=== PATIENT | male | born 1990 | race Caucasian/White ===

== ENCOUNTER 2017-05-05 16:00 | Emergency (ER) | payer BC ==
[2017-05-05 16:26] VITALS: BP 140/89; PULSE 114; RESP 20; TEMP 98.2; O2SAT 95
--- NOTE | 2017-05-05 16:59 | EDPHY ---
H & P Time Seen by Provider: 05/05/17 16:47 HPI/ROS: CHIEF COMPLAINT: Groin abscess HISTORY OF PRESENT ILLNESS: This patient is a 27 year old male with diabetes presenting with an abscess to his right groin area. Onset of tenderness and swelling on the right side of his groin 1 week ago, gradually increasing since then. The pain is moderate and increases with palpation. Associated with small amount of drainage. No fever, vomiting, or other associated symptoms. Tetanus is up-to-date. REVIEW OF SYSTEMS: Constitutional: No fever, no chills Eyes: No visual changes ENT: No sore throat Respiratory: No cough, no shortness of breath Cardiac: No chest pain Gastrointestinal: No nausea, no vomiting, no abdominal pain Genitourinary: No hematuria, no dysuria Musculoskeletal: No leg pain or swelling Skin: No rash Neurological: No headache, no weakness Psychiatric: No depression Past Medical/Surgical History: 1. Diabetes 2. Hyperlipidemia 3. Depression 4. Anxiety Social History: Recently moved from [place]. Smoking Status: Current some day smoker Physical Exam: General Appearance: Alert, pleasant Respiratory: Normal respiratory rate Cardiovascular: Regular rate and rhythm Gastrointestinal: Abdomen is soft and non-tender Genitourinary: 3cm abscess to right groin adjacent to the scrotum. Neurological: A&O, nonfocal, normal gait Skin: Warm and dry, no rash Extremities: Normal inspection Psychiatric: Anxious Constitutional: Initial Vital Signs Temperature (C) 36.8 C 05/05/17 16:23 Heart Rate 114 H 05/05/17 16:23 Respiratory Rate 20 05/05/17 16:23 Blood Pressure 140/89 H 05/05/17 16:23 O2 Sat (%) 95 05/05/17 16:23 O2 Delivery Mode Room Air Allergies/Adverse Reactions: No Known Allergies Allergy (Unverified 05/05/17 16:20) Home Medications: Medication Instructions Recorded Adderall Xr 20 mg Capsule 05/05/17 Effexor Xr 05/05/17 KLONOPIN 05/05/17 Levemir 05/05/17 Lipitor 40 mg (*) 05/05/17 Metformin 1000 mg 05/05/17 Sulfamethox/Tmp 800/160 mg 1 tab PO BID #14 tab 05/05/17 [Bactrim Ds] Wellbutrin Sr 05/05/17 novoLOG 05/05/17 Medical Decision Making Procedures: Procedure: Incision and Drainage abscess. The patient's 3cm abscess was located on the right groin area. Risks, benefits, alternatives discussed with the patient and consent obtained. The area was prepped and draped in sterile fashion. The patient received local anesthesia with 1% lidocaine with epinephrine. The abscess was incised with a #11 blade and purulent drainage was expressed. The wound was packed. The patient tolerated the procedure well. The procedure was performed by myself. ED Course/Re-evaluation: 27 year old male presents with 3cm abscess to right groin area adjacent to scrotum. Plan for I&D. Patient tolerated the procedure well. He will be discharged home in good condition with prescription for Bactrim. Follow up and return precautions discussed. Patient questions answered. He is comfortable with this plan. Departure - Departure Disposition: Home, Routine, Self-Care Clinical Impression: Abscess Condition: Good Instructions: Abscess (ED) Additional Instructions: 1. Take your Bactrim as prescribed. It is important that you finish your entire course of antibiotics. 2. You may remove the packing in two days, or follow up at the emergency department or with a primary care provider for packing removal. We have referred you to our primary care provider drilling field professional. 3. Return if you develop increasing pain, fever, or any other worsening of condition. Referrals: ARI DELVALLE [Other] - As per Instructions Gerard Barbosa MD [Medical Doctor] - As per Instructions (Follow-up in 2 days.) Prescriptions: Sulfamethox/Tmp 800/160 mg [Bactrim Ds] 1 tab PO BID #14 tab Report Scribed for: Taya Wallace Report Scribed by: Ela Sims Date of Report: 05/05/17 Time of Report: 17:12 Physician Review and Approval Statement: 05/05/17 17:12 Portions of this note were transcribed by a medical assistant per diem. I personally performed a history, physical exam, medical decision making, and confirmed accuracy of information the transcribed note.
== END 2017-05-05 17:22 | disposition home or self-care (01) ==
PROC: 0Y970ZZ Drainage of Right Femoral Region, Open Approach (ICD-10-PCS; principal; 2017-05-05)
DX: L02.214 Cutaneous abscess of groin (principal); E11.9 Type 2 diabetes mellitus without complications; F17.200 Nicotine dependence, unspecified, uncomplicated; Z79.84 Long term (current) use of oral hypoglycemic drugs

== ENCOUNTER 2017-05-07 09:59 | Emergency (ER) | payer BC ==
[2017-05-07 10:14] VITALS: BP 146/90; PULSE 95; RESP 16; TEMP 97.9; O2SAT 97
--- NOTE | 2017-05-07 10:35 | EDPHY ---
H & P Stated Complaint: here for wound recheck and packing removal of abcess HPI/ROS: CHIEF COMPLAINT: Right groin abscess recheck HISTORY OF PRESENT ILLNESS: Patient presents for recheck of a right groin abscess that was incised and drained 2 days ago. There is packing in place. He has had some drainage that is purulent. This is minimal amount. No erythema. His pain is significantly improved in the area. There is no testicular pain. No pain with urination. No fever or chills. He is diabetic on insulin and his blood sugars have been 180 to low 200s. He has had no fever or chills. He has no associated complaints or modifying factors otherwise. REVIEW OF SYSTEMS: Ten systems reviewed and are negative unless otherwise noted in the HPI PAST MEDICAL HISTORY: Insulin-dependent diabetes SOCIAL HISTORY: Nonsmoker FAMILY HISTORY: Noncontributory EXAMINATION General Appearance: Alert, no distress Head: normocephalic, atraumatic Gastrointestinal: Abdomen is soft and nontender Skin: Warm and dry, no rash. Right groin abscess that is status post incision and drainage with iodoform packing in place. There is no fluctuance. No surrounding erythema or edema. No induration. Minimal tenderness directly at the site. : Normal examination of the right hemiscrotum and penis. No tenderness of the right testicle Extremities: Nontender, no pedal edema Psychiatric: Mood and affect normal DIFFERENTIAL DIAGNOSES: Including but not limited to groin abscess, complicated abscess MDM: 10:30 a.m. Right groin abscess. This was packed 2 days ago. The wound is very well- appearing. There is no fluctuance. No drainage. No erythema. No testicular pain or abnormality on examination. Packing will be removed. He will be discharged home with daily wound care instructions. I instructed him to contact his concrete engineering technician to discuss changing his sliding scale insulin as his blood sugars have been up above 180. He said that he will do this. He is to return to ER for any worsening symptoms. I would like his wound to be rechecked again in 2-3 days. He is comfortable this plan and discharged home stable condition. SUPERVISION: This patient was independently evaluated without direct examination by the attending physician. Case was discussed with attending physician. Source: Patient, Old records Exam Limitations: No limitations - Personal History Current Tetanus/Diphtheria Vaccine: Yes Current Tetanus Diphtheria and Acellular Pertussis (TDAP): Yes - Medical/Surgical History Hx Asthma: No Hx Chronic Respiratory Disease: No Hx Diabetes: Yes Hx Cardiac Disease: Yes Hx Renal Disease: No Hx Cirrhosis: No Hx Alcoholism: No Hx HIV/AIDS: No Hx Splenectomy or Spleen Trauma: No Other PMH: DM I, HTN, HLD, depression, anxiety, panic attacks. - Social History Smoking Status: Current some day smoker Constitutional: Initial Vital Signs Temperature (C) 97.9 F 05/07/17 10:12 Heart Rate 95 05/07/17 10:12 Respiratory Rate 16 05/07/17 10:12 Blood Pressure 146/90 H 05/07/17 10:12 O2 Sat (%) 97 05/07/17 10:12 O2 Delivery Mode Room Air Allergies/Adverse Reactions: No Known Allergies Allergy (Unverified 05/05/17 16:20) Home Medications: Medication Instructions Recorded Adderall Xr 20 mg Capsule 05/05/17 Effexor Xr 05/05/17 KLONOPIN 05/05/17 Levemir 05/05/17 Lipitor 40 mg (*) 05/05/17 Metformin 1000 mg 05/05/17 Sulfamethox/Tmp 800/160 mg 1 tab PO BID #14 tab 05/05/17 [Bactrim Ds] Wellbutrin Sr 05/05/17 novoLOG 05/05/17 Departure - Departure Disposition: Home, Routine, Self-Care Clinical Impression: Abscess of groin, right, Insulin dependent diabetes mellitus Condition: Good Instructions: Abscess (ED), Abscess Follow-up (ED) Additional Instructions: 1. Daily wound care as discussed 2. Contact her concrete engineering technician to discuss all treating her sliding scale insulin 3. Return to the ER for any return of symptoms, redness, testicular pain 4. Wound recheck in 2-3 days Referrals: NONE *PRIMARY CARE P,. [Primary Care Provider] - As per Instructions Remedios Espino MD [[facility] Primary Care Provider] - As per Instructions
== END 2017-05-07 10:45 | disposition home or self-care (01) ==
DX: L02.214 Cutaneous abscess of groin (principal); E11.9 Type 2 diabetes mellitus without complications; I10 Essential (primary) hypertension; F17.200 Nicotine dependence, unspecified, uncomplicated

== ENCOUNTER 2017-05-17 16:21 | Emergency (ER) | payer BC ==
[2017-05-17] MEDS ORDERED: LORazepam 1 MG TAB PO ONE (17:16)
--- NOTE | 2017-05-17 17:59 | EDPHY ---
H & P Time Seen by Provider: 05/17/17 17:21 HPI/ROS: CHIEF COMPLAINT: Fever chills lower back pain HISTORY OF PRESENT ILLNESS: This is a 27-year-old male presenting to the emergency department complaining of fever chills onset at 0230, patient states he took some Advil this morning which did help some, but as the days progressed lower back pain with some burning urination. Denies any nausea vomiting. Reports he 2 weeks ago is seen for abscess to right groin is resolving still on antibiotics no complications. REVIEW OF SYSTEMS: Constitutional: Fever. Chills Eyes: No discharge. ENT: No sore throat. Cardiovascular: No chest pain, no palpitations. Respiratory: No cough, no shortness of breath. Gastrointestinal: No abdominal pain, no vomiting. Genitourinary: Burning with urination Musculoskeletal: Lower back pain. Skin: No rashes. Neurological: No headache. Smoking Status: Current some day smoker Physical Exam: General Appearance: Alert, no distress. Afebrile. Non ill or toxic appearing Eyes: Pupils equal and round no pallor or injection. ENT, Mouth: Mucous membranes moist. Respiratory: There are no retractions, lungs are clear to auscultation. Cardiovascular: Regular rate and rhythm. Gastrointestinal: Abdomen is soft and nontender, no masses, bowel sounds normal. Neurological: No focal deficits. Answering questions appropriately Skin: Warm and dry, no rashes. Musculoskeletal: Neck is supple nontender. No CVA tenderness on palpation Extremities: symmetrical, full range of motion. Psychiatric: Patient is oriented X 3, answering questions appropriately Constitutional: Initial Vital Signs Temperature (C) 37.0 C 05/17/17 16:50 Heart Rate 110 H 05/17/17 16:50 Respiratory Rate 18 05/17/17 16:50 Blood Pressure 136/78 H 05/17/17 16:50 O2 Sat (%) 96 05/17/17 16:50 O2 Delivery Mode Room Air Allergies/Adverse Reactions: No Known Allergies Allergy (Unverified 05/17/17 16:48) Home Medications: Medication Instructions Recorded Adderall Xr 20 mg Capsule 05/05/17 Effexor Xr 05/05/17 KLONOPIN 05/05/17 Levemir 05/05/17 Lipitor 40 mg (*) 05/05/17 Metformin 1000 mg 05/05/17 Sulfamethox/Tmp 800/160 mg 1 tab PO BID #14 tab 05/05/17 [Bactrim Ds] Wellbutrin Sr 05/05/17 novoLOG 05/05/17 Medical Decision Making ED Course/Re-evaluation: Discussed ED plan of care: UA, CBC, BMP 1830: Discussed all lab results with patient. Not in any distress stable 1845: Discharge home---> stable, discussed all discharge instructions with patient. Differential Diagnosis: Other differential diagnosis considered but not limited to UTI, renal colic, kidney stones, DKA - Data Points Laboratory Results: Laboratory Results 05/17/17 18:06 05/17/17 18:06 05/17/17 05/17/17 18:06 18:06 WBC 7.37 10^3/uL 10^3/uL (3.80-9.50) RBC 5.08 10^6/uL 10^6/uL (4.40-6.38) Hgb 14.4 g/dL g/dL (13.7-17.5) Hct 42.9 % % (40.0-51.0) MCV 84.4 fL fL (81.5-99.8) MCH 28.3 pg pg (27.9-34.1) MCHC 33.6 g/dL g/dL (32.4-36.7) RDW 12.8 % % (11.5-15.2) Plt Count 207 10^3/uL 10^3/uL (150-400) MPV 10.3 fL fL (8.7-11.7) Neut % (Auto) 81.4 % H % (39.3-74.2) Lymph % (Auto) 7.6 % L % (15.0-45.0) Yancey % (Auto) 6.1 % % (4.5-13.0) Eos % (Auto) 3.7 % % (0.6-7.6) Baso % (Auto) 0.5 % % (0.3-1.7) Nucleat RBC Rel Count 0.0 % % (0.0-0.2) Absolute Neuts (auto) 6.00 10^3/uL 10^3/uL (1.70-6.50) Absolute Lymphs (auto) 0.56 10^3/uL L 10^3/uL (1.00-3.00) Absolute Monos (auto) 0.45 10^3/uL 10^3/uL (0.30-0.80) Absolute Eos (auto) 0.27 10^3/uL 10^3/uL (0.03-0.40) Absolute Basos (auto) 0.04 10^3/uL 10^3/uL (0.02-0.10) Absolute Nucleated RBC 0.00 10^3/uL 10^3/uL (0-0.01) Immature Gran % 0.7 % % (0.0-1.1) Immature Gran # 0.05 10^3/uL 10^3/uL (0.00-0.10) Sodium 135 mEq/L mEq/L (134-144) Potassium 4.2 mEq/L mEq/L (3.5-5.2) Chloride 99 mEq/L mEq/L (97-110) Carbon Dioxide 21 mEq/l L mEq/l (22-31) Anion Gap 15 mEq/L mEq/L (8-16) BUN 12 mg/dL mg/dL (7-23) Creatinine 0.9 mg/dL mg/dL (0.7-1.3) Estimated GFR > 60 Glucose 189 mg/dL H mg/dL (70-100) Calcium 10.0 mg/dL mg/dL (8.5-10.4) Medications Given: Discontinued Medications Lorazepam (Ativan) 1 mg PO EDNOW ONE Stop: 05/17/17 17:17 Last Admin: 05/17/17 17:20 Dose: 1 mg Departure - Departure Disposition: Home, Routine, Self-Care Clinical Impression: Back pain Qualifiers: Back pain location: low back pain Chronicity: acute Back pain laterality: bilateral Sciatica presence: without sciatica Qualified Code(s): M54.5 - Low back pain Condition: Good Instructions: Acute Low Back Pain (ED) Additional Instructions: 1. Follow up with your primary care provider tomorrow or next week 2. Ibuprofen 600 mg stated mg every 6-8 hours as needed 3. Continue monitoring your blood sugar 4. If at any point time symptoms worsen, such as: Nausea vomiting fevers greater than 101 on resolving with Tylenol ibuprofen shortness of breath chest pain return to the ER Referrals: Colette Cohn MD [Primary Care Provider] - As per Instructions
[2017-05-17 18:16] LABS: % IMMATURE GRANULYOCYTES 0.7 % (0.0-1.1); ABSOLUTE IMMATURE GRANULOCYTES 0.05 10^3/uL (0.00-0.10); ADD DIFF? NO; ADD MORPH? NO; ADD SCAN? NO; ATYPICAL LYMPHOCYTE FLAG 10 (0-99); FRAGMENT RBC FLAG 0 (0-99); HEMATOCRIT 42.9 % (40.0-51.0); HEMOGLOBIN 14.4 g/dL (13.7-17.5); LEFT SHIFT FLG 10 (0-99); LIPEMIA HEMOLYSIS FLAG 80 (0-99); MEAN CELL HEMOGLOBIN 28.3 pg (27.9-34.1); MEAN CELL HEMOGLOBIN CONCENTR. 33.6 g/dL (32.4-36.7); MEAN CELL VOLUME 84.4 fL (81.5-99.8); MEAN PLATELET VOLUME 10.3 fL (8.7-11.7); PLATELET CLUMPS FLAG 10 (0-99); PLATELET COUNT 207 10^3/uL (150-400); RED BLOOD CELL COUNT 5.08 10^6/uL (4.40-6.38); RED CELL DISTRIBUTION WIDTH 12.8 % (11.5-15.2)
[2017-05-17 18:32] LABS: ANION GAP 15 mEq/L (8-16); CARBON DIOXIDE 21 mEq/l (22-31); CHLORIDE 99 mEq/L (97-110); CREATININE 0.9 mg/dL (0.7-1.3); GLOMERULAR FILTRATION RATE > 60; GLUCOSE 189 mg/dL (70-100); POTASSIUM 4.2 mEq/L (3.5-5.2); SODIUM 135 mEq/L (134-144)
[2017-05-17 19:04] VITALS: BP 139/78; PULSE 103; RESP 17; TEMP 100.8; O2SAT 98
== END 2017-05-17 19:03 | disposition home or self-care (01) ==
DX: M54.5 Low back pain (principal); F17.200 Nicotine dependence, unspecified, uncomplicated

== ENCOUNTER 2017-07-10 19:28 | Emergency (ER) | payer BC ==
--- NOTE | 2017-07-10 20:00 | EDPHY ---
H & P Stated Complaint: N/V x 24 hours Time Seen by Provider: 07/10/17 19:56 HPI/ROS: HPI: This is a 27-year-old male who presents with Chief Complaint:Nausea and vomiting Location: GI Quality: nausea and Vomiting Duration: 2 days Signs and Symptoms: No abdominal pain, no fever, no diarrhea, + nausea, + vomiting x4 times today, no blood in stool, no hematemesis, no abdominal bloody Timing: Sudden, intermittent Severity: Moderate Context: Patient is a type 1 diabetic on long-term insulin who complains of nausea and vomiting 4 times today. Denies hematemesis/abdominal pain. He reports that he has a cold for the past few days. Yesterday he started to experience intermittent nausea and vomiting started today. Denies abdominal pain. Denies recent antibiotic use. Denies concern for food poisoning. Reports his blood sugars have been running high. He is scheduled to receive his insulin pump in the next month or so. Modifying Factors: Has not tried any [id number] medications but has tried to sip liquids to prevent dehydration. Comment: ROS: Constitutional: No fever, no chills, no weight loss Eyes: No blurred vision Respiratory: No shortness of breath, no cough Cardiovascular: No chest pain Gastrointestinal: + nausea, + vomiting, no diarrhea Genitourinary: No dysuria Extremities: No myalgias Neurologic: No weakness, no numbness Skin: No rashes Hematologic: No bruising, no bleeding MEDICAL/SURGICAL/SOCIAL: PMHx: DM I, HTN, HLD, depression, anxiety, panic attacks PSHx: abscess drained, wisdom tooth extraction, hernia repair CONSTITUTIONAL: Overweight ill-appearing male, nontoxic, awake and alert, no obvious distress HEENT: Atraumatic and normocephalic, PERRL, EOMI. Tympanic membranes clear. Oropharynx clear, no exudate and moist pink mucosa. Airway patent. No lymphadenopathy. No meningismus. Cardiovascular: Normal S1/S2, regular rate, regular rhythm, without murmur rub or gallop. PULMONARY/CHEST: Symmetrical and nontender. Clear to auscultation bilaterally. Good air movement. No accessory muscle usage. ABDOMEN: Soft, nondistended, nontender, no rebound, no guarding, no peritoneal signs, no masses or organomegaly. No CVAT. EXTREMITIES: 2/2 pulses, no deformities, no clubbing, no cyanosis or edema. NEUROLOGICAL: no focal neuro deficits. GCS 15. SKIN: Warm and dry, no erythema. no rash. Good capillary refill. Source: Patient Exam Limitations: No limitations - Personal History Current Tetanus/Diphtheria Vaccine: Yes - Medical/Surgical History Hx Asthma: No Hx Chronic Respiratory Disease: No Hx Diabetes: Yes Hx Cardiac Disease: Yes Hx Renal Disease: No Hx Cirrhosis: No Hx Alcoholism: No Hx HIV/AIDS: No Hx Splenectomy or Spleen Trauma: No Other PMH: PMHx: DM I, HTN, HLD, depression, anxiety, panic attacks. PSHx: abcess drained, wisdom tooth extraction, hernia repair - Social History Smoking Status: Current some day smoker Constitutional: Initial Vital Signs Temperature (C) 36.5 C 07/10/17 19:30 Heart Rate 96 07/10/17 19:30 Respiratory Rate 16 07/10/17 19:30 Blood Pressure 165/96 H 07/10/17 19:30 O2 Sat (%) 95 07/10/17 19:30 O2 Delivery Mode Room Air O2 (L/minute) 2 Allergies/Adverse Reactions: No Known Allergies Allergy (Unverified 05/17/17 16:48) Home Medications: Medication Instructions Recorded Adderall Xr 20 mg Capsule 05/05/17 Effexor Xr 05/05/17 KLONOPIN 05/05/17 Levemir 05/05/17 Lipitor 40 mg (*) 05/05/17 Metformin 1000 mg 05/05/17 Sulfamethox/Tmp 800/160 mg 1 tab PO BID #14 tab 05/05/17 [Bactrim Ds] Wellbutrin Sr 05/05/17 novoLOG 05/05/17 Ondansetron Odt [Zofran Odt 4 mg 4 mg PO Q4 PRN #12 tab 07/10/17 (*)] Medical Decision Making ED Course/Re-evaluation: Labs, IV fluids, IV medication, urinalysis ordered Will evaluate for DKA. Suspect viral gastroenteritis. FSBS 237 upon arrival Mild leukocytosis noted, with mild abnormalities in anion gap and CO2. Serum glucose is in the 200s. Which is likely due to his viral infectious process. Given 2 L of fluid and IV Zofran with moderate relief 2100 Reassessed patient: no longer nauseous and reports that he feels 50% better. Discussed obtaining ultrasound or CT imaging with patient and he politely declines which I feel is reasonable at this time as is abdominal exam is benign and LFTs are normal. Magnesium level 1.2; given magnesium IV supplementation; etiology is due to GI losses While receiving IV magnesium, nursing notified me that patient began to feel anxious. IV Ativan 1 mg given UA shows ketones and glucose. Passed PO trial. Differential Diagnosis: Upper abdominal pain including but not limited to cholecystitis, gastritis, peptic ulcers disease, and pancreatitis. - Data Points Laboratory Results: Laboratory Results 07/10/17 20:30 07/10/17 20:30 07/10/17 07/10/17 07/10/17 21:15 20:30 20:30 WBC 13.06 10^3/uL H 10^3/uL (3.80-9.50) RBC 5.45 10^6/uL 10^6/uL (4.40-6.38) Hgb 15.4 g/dL g/dL (13.7-17.5) Hct 45.1 % % (40.0-51.0) MCV 82.8 fL fL (81.5-99.8) MCH 28.3 pg pg (27.9-34.1) MCHC 34.1 g/dL g/dL (32.4-36.7) RDW 13.3 % % (11.5-15.2) Plt Count 241 10^3/uL 10^3/uL (150-400) MPV 10.4 fL fL (8.7-11.7) Neut % (Auto) 86.8 % H % (39.3-74.2) Lymph % (Auto) 7.0 % L % (15.0-45.0) Shannon % (Auto) 5.2 % % (4.5-13.0) Eos % (Auto) 0.1 % L % (0.6-7.6) Baso % (Auto) 0.2 % L % (0.3-1.7) Nucleat RBC Rel Count 0.0 % % (0.0-0.2) Absolute Neuts (auto) 11.35 10^3/uL H 10^3/uL (1.70-6.50) Absolute Lymphs (auto) 0.91 10^3/uL L 10^3/uL (1.00-3.00) Absolute Monos (auto) 0.68 10^3/uL 10^3/uL (0.30-0.80) Absolute Eos (auto) 0.01 10^3/uL L 10^3/uL (0.03-0.40) Absolute Basos (auto) 0.02 10^3/uL 10^3/uL (0.02-0.10) Absolute Nucleated RBC 0.00 10^3/uL 10^3/uL (0-0.01) Immature Gran % 0.7 % % (0.0-1.1) Immature Gran # 0.09 10^3/uL 10^3/uL (0.00-0.10) Sodium 136 mEq/L mEq/L (134-144) Potassium 3.9 mEq/L mEq/L (3.5-5.2) Chloride 99 mEq/L mEq/L (97-110) Carbon Dioxide 19 mEq/l L mEq/l (22-31) Anion Gap 18 mEq/L H mEq/L (8-16) BUN 12 mg/dL mg/dL (7-23) Creatinine 0.6 mg/dL L mg/dL (0.7-1.3) Estimated GFR > 60 Glucose 255 mg/dL H mg/dL (70-100) Calcium 10.0 mg/dL mg/dL (8.5-10.4) Phosphorus 3.9 mg/dL mg/dL (2.5-4.5) Magnesium 1.2 mg/dL L mg/dL (1.6-2.3) Total Bilirubin 0.8 mg/dL mg/dL (0.1-1.4) Conjugated Bilirubin 0.3 mg/dL mg/dL (0.0-0.5) Unconjugated Bilirubin 0.5 mg/dL mg/dL (0.0-1.1) AST 27 IU/L IU/L (17-59) ALT 52 IU/L IU/L (21-72) Alkaline Phosphatase 94 IU/L IU/L (38-126) Total Protein 7.6 g/dL g/dL (6.3-8.2) Albumin 4.8 g/dL g/dL (3.5-5.0) Lipase 48 IU/L IU/L (23-300) Beta-Hydroxybutyrate 1.15 mmol/L H mmol/L (0.02-0.27) Urine Color YELLOW Urine Appearance CLEAR Urine pH 6.0 (5.0-7.5) Ur Specific [place] 1.017 (1.002-1.030) Urine Protein NEGATIVE (NEGATIVE) Urine Ketones 2+ H (NEGATIVE) Urine Blood NEGATIVE (NEGATIVE) Urine Nitrate NEGATIVE (NEGATIVE) Urine Bilirubin NEGATIVE (NEGATIVE) Urine Urobilinogen NEGATIVE EU EU (0.2-1.0) Ur Leukocyte Esterase NEGATIVE (NEGATIVE) Urine RBC 1-3 /hpf /hpf (0-3) Urine WBC 1-3 /hpf /hpf (0-3) Ur Epithelial Cells TRACE /lpf /lpf (NONE-1+) Urine Glucose 3+ H (NEGATIVE) Medications Given: Discontinued Medications Sodium Chloride (Ns) 1,000 mls @ 0 mls/hr IV EDNOW ONE; Wide Open PRN Reason: Protocol Stop: 07/10/17 20:02 Last Admin: 07/10/17 20:34 Dose: 1,000 mls Sodium Chloride (Ns) 1,000 mls @ 0 mls/hr IV EDNOW ONE; Wide Open PRN Reason: Protocol Stop: 07/10/17 20:02 Last Admin: 07/10/17 21:32 Dose: 1,000 mls Magnesium Sulfate/Dextrose (Magnesium Sulf 1 Gm (Premix)) 100 mls @ 100 mls/hr IV EDNOW ONE Stop: 07/10/17 21:55 Last Admin: 07/10/17 21:11 Dose: 100 mls Lorazepam (Ativan Injection) 1 mg IVP EDNOW ONE Stop: 07/10/17 21:28 Last Admin: 07/10/17 21:30 Dose: 1 mg Ondansetron HCl (Zofran) 4 mg IVP EDNOW ONE Stop: 07/10/17 20:02 Last Admin: 07/10/17 20:34 Dose: 4 mg Ondansetron HCl (Zofran Odt 4 Mg Prepack#2) 1 btl TAKEHOME EDNOW ONE Stop: 07/10/17 22:07 Last Admin: 07/10/17 22:08 Dose: 1 btl Promethazine HCl (Phenergan) 25 mg IVP EDNOW ONE Stop: 07/10/17 22:04 Last Admin: 07/10/17 22:08 Dose: 25 mg Departure - Departure Disposition: Home, Routine, Self-Care Clinical Impression: Hyperglycemia due to type 1 diabetes mellitus, Gastroenteritis Condition: Good Instructions: Gastroenteritis (ED) Additional Instructions: Please have repeat labs drawn in 3-5 days to document normalization of your magnesium level. Rest as much as possible and drink plenty of fluids. Take insulin as prescribed. Referrals: Colette Cohn MD [Primary Care Provider] - As per Instructions Prescriptions: Ondansetron Odt [Zofran Odt 4 mg (*)] 4 mg PO Q4 PRN #12 tab PRN Reason: Nausea/Vomiting, Use 1st
[2017-07-10] MEDS ORDERED: NS 1,000 ML IV ONE ×2 (20:01)
[2017-07-10] MEDS ORDERED: ONDANSETRON 4 MG/2 ML VIAL IVP ONE (20:01)
[2017-07-10 20:39] LABS: % IMMATURE GRANULYOCYTES 0.7 % (0.0-1.1); ABSOLUTE IMMATURE GRANULOCYTES 0.09 10^3/uL (0.00-0.10); ADD DIFF? NO; ADD MORPH? NO; ADD SCAN? NO; ATYPICAL LYMPHOCYTE FLAG 0 (0-99); FRAGMENT RBC FLAG 0 (0-99); HEMATOCRIT 45.1 % (40.0-51.0); HEMOGLOBIN 15.4 g/dL (13.7-17.5); LEFT SHIFT FLG 10 (0-99); LIPEMIA HEMOLYSIS FLAG 90 (0-99); MEAN CELL HEMOGLOBIN 28.3 pg (27.9-34.1); MEAN CELL HEMOGLOBIN CONCENTR. 34.1 g/dL (32.4-36.7); MEAN CELL VOLUME 82.8 fL (81.5-99.8); MEAN PLATELET VOLUME 10.4 fL (8.7-11.7); PLATELET CLUMPS FLAG 0 (0-99); PLATELET COUNT 241 10^3/uL (150-400); RED BLOOD CELL COUNT 5.45 10^6/uL (4.40-6.38); RED CELL DISTRIBUTION WIDTH 13.3 % (11.5-15.2)
[2017-07-10 20:52] LABS: ALANINE AMINOTRANSFERASE 52 IU/L (21-72); ALBUMIN 4.8 g/dL (3.5-5.0); ALKALINE PHOSPHATASE 94 IU/L (38-126); ANION GAP 18 mEq/L (8-16); ASPARTATE AMINOTRANSFERASE 27 IU/L (17-59); BILIRUBIN,TOTAL 0.8 mg/dL (0.1-1.4); BILIRUBIN-CONJUGATED 0.3 mg/dL (0.0-0.5); BILIRUBIN-UNCONJUGATED 0.5 mg/dL (0.0-1.1); CARBON DIOXIDE 19 mEq/l (22-31); CHLORIDE 99 mEq/L (97-110); CREATININE 0.6 mg/dL (0.7-1.3); GLOMERULAR FILTRATION RATE > 60; GLUCOSE 255 mg/dL (70-100); MAGNESIUM 1.2 mg/dL (1.6-2.3); POTASSIUM 3.9 mEq/L (3.5-5.2); SODIUM 136 mEq/L (134-144); TOTAL PROTEIN 7.6 g/dL (6.3-8.2)
[2017-07-10] MEDS ORDERED: MAGNESIUM SULF 1 GM/DEXTROSE 100 ML IV ONE (20:56)
[2017-07-10 21:14] VITALS: TEMP 97.9
[2017-07-10] MEDS ORDERED: LORazepam 2 MG/ML INJ IVP ONE (21:27)
[2017-07-10 21:32] LABS: COLOR YELLOW; LEUKOCYTE ESTERASE,URINE NEGATIVE (NEGATIVE); NITRITE,URINE NEGATIVE (NEGATIVE)
[2017-07-10 21:33] LABS: B-HYDROXYBUTYRATE 1.15 mmol/L (0.02-0.27)
[2017-07-10] MEDS ORDERED: PROMETHAZINE HCL 25 MG/ML INJ IVP ONE (22:03)
[2017-07-10] MEDS ORDERED: ONDANSETRON 4MG PREPACK#2 BTL TAKEHOME ONE (22:06)
[2017-07-10 22:50] VITALS: BP 152/98; PULSE 100; RESP 18; O2SAT 95
== END 2017-07-10 22:43 | disposition home or self-care (01) ==
DX: K52.9 Noninfective gastroenteritis and colitis, unspecified (principal); E10.65 Type 1 diabetes mellitus with hyperglycemia; I10 Essential (primary) hypertension; F17.200 Nicotine dependence, unspecified, uncomplicated; E86.9 Volume depletion, unspecified; Z79.4 Long term (current) use of insulin; Z79.84 Long term (current) use of oral hypoglycemic drugs
CPT/HCPCS: 96365; J2060; J2405; J2550; J3475

== ENCOUNTER 2017-09-02 09:37 | Emergency (ER) | payer BC ==
[2017-09-02] MEDS ORDERED: NS 1,000 ML IV ONE ×2 (10:42→11:28)
[2017-09-02] MEDS ORDERED: ONDANSETRON 4 MG/2 ML VIAL IVP ONE (10:44)
[2017-09-02 10:48] LABS: % IMMATURE GRANULYOCYTES 0.6 % (0.0-1.1); ABSOLUTE IMMATURE GRANULOCYTES 0.06 10^3/uL (0.00-0.10); ADD DIFF? NO; ADD MORPH? NO; ADD SCAN? NO; ATYPICAL LYMPHOCYTE FLAG 0 (0-99); FRAGMENT RBC FLAG 0 (0-99); HEMATOCRIT 43.7 % (40.0-51.0); HEMOGLOBIN 15.8 g/dL (13.7-17.5); LEFT SHIFT FLG 0 (0-99); LIPEMIA HEMOLYSIS FLAG 90 (0-99); MEAN CELL HEMOGLOBIN 29.2 pg (27.9-34.1); MEAN CELL HEMOGLOBIN CONCENTR. 36.2 g/dL (32.4-36.7); MEAN CELL VOLUME 80.8 fL (81.5-99.8); MEAN PLATELET VOLUME 10.2 fL (8.7-11.7); PLATELET CLUMPS FLAG 10 (0-99); PLATELET COUNT 280 10^3/uL (150-400); RED BLOOD CELL COUNT 5.41 10^6/uL (4.40-6.38); RED CELL DISTRIBUTION WIDTH 13.5 % (11.5-15.2)
[2017-09-02 10:57] LABS: ANION GAP 18 mEq/L (8-16); CALCIUM 9.9 mg/dL (8.5-10.4); CARBON DIOXIDE 17 mEq/l (22-31); CHLORIDE 106 mEq/L (97-110); CREATININE 0.7 mg/dL (0.7-1.3); GLOMERULAR FILTRATION RATE > 60; GLUCOSE 289 mg/dL (70-100); POTASSIUM 3.8 mEq/L (3.5-5.2); SODIUM 141 mEq/L (134-144)
[2017-09-02] MEDS ORDERED: LORazepam 2 MG/ML INJ IVP ONE ×2 (11:10→11:28)
--- NOTE | 2017-09-02 11:34 | EDPHY ---
H & P Time Seen by Provider: 09/02/17 10:36 HPI/ROS: CHIEF COMPLAINT: Anxiety HISTORY OF PRESENT ILLNESS: 27-year-old male presents to the emergency department feeling extremely anxious. The patient is a type 1 diabetic on insulin. He has not seen a primary care provider in quite some time. His last hemoglobin A1c was a few months ago and was over 9. He feels nauseous and has been vomiting. He states that he was in intensive outpatient program for depression and anxiety and "amongst other things "and then the program went out of business. This ended few months ago and since that time he is having a great deal of difficulty coping. He feels extremely anxious. He is not suicidal or homicidal. "I just want to feel better. "He does not abuse drugs or alcohol. REVIEW OF SYSTEMS: Constitutional: No fever, no chills. Eyes: No double or blurry vision. ENT: No sore throat. Respiratory: No cough, no shortness of breath. Cardiac: No chest pain. Gastrointestinal: Vomiting. Diffuse abdominal pain. No diarrhea. Genitourinary: No dysuria. Musculoskeletal: No neck or back pain. Skin: No rashes. Neurological: No headache. Past Medical/Surgical History: Insulin-dependent diabetic, anxiety, depression Social History: Single Smoking Status: Current every day smoker Physical Exam: General Appearance: Alert, obvious distress. Hyperventilating, appears extremely anxious. Eyes: Pupils equal and round. Extraocular motions are all intact. ENT: Mouth: Mucous membranes very dry. Respiratory: No wheezing, rhonchi, or rales, lungs are clear to auscultation. Cardiovascular: Regular rate and rhythm. Gastrointestinal: Abdomen is soft and nontender, no masses, no rebound or guarding, bowel sounds normal. Neurological: Alert and oriented x 3, cranial nerves II through XII grossly intact Skin: Warm and dry, no rashes. Musculoskeletal: Nontender to palpate along the cervical, thoracic or lumbar spine. Neck is supple. Extremities: Full range of motion and no peripheral edema. Psychiatric: Patient is oriented X 3, there is no agitation. Constitutional: Initial Vital Signs Temperature (C) 36.9 C 09/02/17 09:50 Heart Rate 118 H 09/02/17 09:50 Respiratory Rate 26 H 09/02/17 09:50 Blood Pressure 188/70 H 09/02/17 09:50 O2 Sat (%) 99 09/02/17 09:50 O2 Delivery Mode Room Air Allergies/Adverse Reactions: No Known Allergies Allergy (Unverified 05/17/17 16:48) Home Medications: Medication Instructions Recorded Insulin Pump Cartridge 09/02/17 LORazepam [Ativan] 1 mg PO Q6-8PRN PRN #10 tab 09/02/17 Medical Decision Making ED Course/Re-evaluation: Patient had IV established and was given 2 mg total of IV Ativan as well as IV normal saline. He was observed. His laboratory studies were within normal limits. CO2 was low likely from hyperventilation. The patient does not feel suicidal homicidal. Initially he wanted to speak with somebody for mental health. Upon discharge, however the patient would like to be discharged home. He is not feeling suicidal or homicidal. He was discharged home with information for [facility]. Differential Diagnosis: Including but not limited to anxiety, dehydration, electrolyte abnormality, depression, suicidal ideation - Data Points Laboratory Results: Laboratory Results 09/02/17 10:25 09/02/17 10:25 09/02/17 09/02/17 09/02/17 10:25 10:25 10:25 WBC 10.54 10^3/uL H 10^3/uL (3.80-9.50) RBC 5.41 10^6/uL 10^6/uL (4.40-6.38) Hgb 15.8 g/dL g/dL (13.7-17.5) POC Hgb Hct 43.7 % % (40.0-51.0) POC Hct MCV 80.8 fL L fL (81.5-99.8) MCH 29.2 pg pg (27.9-34.1) MCHC 36.2 g/dL g/dL (32.4-36.7) RDW 13.5 % % (11.5-15.2) Plt Count 280 10^3/uL 10^3/uL (150-400) MPV 10.2 fL fL (8.7-11.7) Neut % (Auto) 81.3 % H % (39.3-74.2) Lymph % (Auto) 11.3 % L % (15.0-45.0) [place] % (Auto) 4.8 % % (4.5-13.0) Eos % (Auto) 1.4 % % (0.6-7.6) Baso % (Auto) 0.6 % % (0.3-1.7) Nucleat RBC Rel Count 0.0 % % (0.0-0.2) Absolute Neuts (auto) 8.57 10^3/uL H 10^3/uL (1.70-6.50) Absolute Lymphs (auto) 1.19 10^3/uL 10^3/uL (1.00-3.00) Absolute Monos (auto) 0.51 10^3/uL 10^3/uL (0.30-0.80) Absolute Eos (auto) 0.15 10^3/uL 10^3/uL (0.03-0.40) Absolute Basos (auto) 0.06 10^3/uL 10^3/uL (0.02-0.10) Absolute Nucleated RBC 0.00 10^3/uL 10^3/uL (0-0.01) Immature Gran % 0.6 % % (0.0-1.1) Immature Gran # 0.06 10^3/uL 10^3/uL (0.00-0.10) VBG Lactic Acid 3.4 mmol/L H mmol/L (0.7-2.1) POC Sodium Sodium 141 mEq/L mEq/L (134-144) POC Potassium Potassium 3.8 mEq/L mEq/L (3.5-5.2) POC Chloride Chloride 106 mEq/L mEq/L (97-110) Carbon Dioxide 17 mEq/l L mEq/l (22-31) Anion Gap 18 mEq/L H mEq/L (8-16) POC BUN BUN 12 mg/dL mg/dL (7-23) Creatinine 0.7 mg/dL mg/dL (0.7-1.3) POC Creatinine Estimated GFR > 60 Glucose 289 mg/dL H mg/dL (70-100) POC Glucose Calcium 9.9 mg/dL mg/dL (8.5-10.4) 09/02/17 10:24 WBC RBC Hgb POC Hgb 16.0 gm/dL gm/dL (13.7-17.5) Hct POC Hct 47 % % (40-51) MCV MCH MCHC RDW Plt Count MPV Neut % (Auto) Lymph % (Auto) [place] % (Auto) Eos % (Auto) Baso % (Auto) Nucleat RBC Rel Count Absolute Neuts (auto) Absolute Lymphs (auto) Absolute Monos (auto) Absolute Eos (auto) Absolute Basos (auto) Absolute Nucleated RBC Immature Gran % Immature Gran # VBG Lactic Acid POC Sodium 139 mEq/L mEq/L (134-144) Sodium POC Potassium 3.5 mEq/L mEq/L (3.3-5.0) Potassium POC Chloride 106 mEq/L mEq/L (97-110) Chloride Carbon Dioxide Anion Gap POC BUN 12 mg/dL mg/dL (7-23) BUN Creatinine POC Creatinine 0.7 mg/dL mg/dL (0.7-1.3) Estimated GFR Glucose POC Glucose 301 mg/dL H mg/dL (70-100) Calcium Medications Given: Discontinued Medications Sodium Chloride (Ns) 1,000 mls @ 0 mls/hr IV EDNOW ONE; Wide Open PRN Reason: Protocol Stop: 09/02/17 10:43 Last Admin: 09/02/17 10:47 Dose: 1,000 mls Sodium Chloride (Ns) 1,000 mls @ 0 mls/hr IV ONCE ONE PRN Reason: Wide Open Stop: 09/02/17 11:29 Last Admin: 09/02/17 11:37 Dose: 1,000 mls Lorazepam (Ativan Injection) 1 mg IVP EDNOW ONE Stop: 09/02/17 11:11 Last Admin: 09/02/17 11:13 Dose: 1 mg Lorazepam (Ativan Injection) 1 mg IVP EDNOW ONE Stop: 09/02/17 11:29 Last Admin: 09/02/17 11:36 Dose: 1 mg Ondansetron HCl (Zofran) 4 mg IVP EDNOW ONE Stop: 09/02/17 10:45 Last Admin: 09/02/17 10:47 Dose: 4 mg Point of Care Test Results: 09/02/17 10:24 POC Sodium 139 POC Potassium 3.5 POC Chloride 106 POC BUN 12 POC Creatinine 0.7 POC Glucose 301 H Departure - Departure Disposition: Home, Routine, Self-Care Clinical Impression: Anxiety, Dehydration Vomiting Qualifiers: Vomiting type: unspecified Vomiting Intractability: non-intractable Nausea presence: with nausea Qualified Code(s): R11.2 - Nausea with vomiting, unspecified Condition: Good Instructions: Generalized Anxiety Disorder (ED), Acute Nausea and Vomiting (ED) Additional Instructions: Ativan as needed for anxiety. Return to the emergency department if you developed pain in her chest, difficulty breathing, or if you feel worse in any way. Referrals: [facility],. [Clinic] - As per Instructions Prescriptions: LORazepam [Ativan] 1 mg PO Q6-8PRN PRN #10 tab PRN Reason: Anxiety
[2017-09-02 11:50] VITALS: TEMP 97.5
[2017-09-02 14:00] VITALS: BP 145/96; PULSE 87; RESP 18; O2SAT 95
== END 2017-09-02 13:48 | disposition home or self-care (01) ==
DX: F41.9 Anxiety disorder, unspecified (principal); E86.0 Dehydration; E86.9 Volume depletion, unspecified; F17.200 Nicotine dependence, unspecified, uncomplicated; E10.9 Type 1 diabetes mellitus without complications
CPT/HCPCS: 82947-QW; 96374; J2060; J2405

== ENCOUNTER 2018-03-03 09:46 | Emergency (ER) | payer BC ==
[2018-03-03] MEDS ORDERED: LORazepam 1 MG TAB PO ONE (10:07)
[2018-03-03] MEDS ORDERED: ONDANSETRON DISINTEGRATING 4 MG TAB PO ONE (10:07)
[2018-03-03] MEDS ORDERED: LIDOCAINE 2% VISCOUS 15 ML UDCUP PO ONE (10:08)
[2018-03-03] MEDS ORDERED: MAG HYDROX/AL HYDROX/SIMETH 30 ML UDCUP PO ONE (10:08)
[2018-03-03] MEDS ORDERED: HYOSCYAMINE SULFATE 0.125 MG TAB PO ONE (10:08)
--- NOTE | 2018-03-03 10:21 | EDPHY ---
H & P Time Seen by Provider: 03/03/18 09:53 HPI/ROS: CHIEF COMPLAINT: I am having a panic attack HISTORY OF PRESENT ILLNESS: 28-year-old man has insulin-dependent diabetes and what he tells me is a history of reflux and possible ulcer. He started getting epigastric mild abdominal pain last night associated with belching and burping. Today he had an episode of vomiting at home and started getting a panic attack with hyperventilation and feeling"out of it."He took a 0.5 mg Klonopin and presents to the ED for evaluation. His glucose was 266 at 8:00 a.m.. Patient says he has a history of panic attacks. When asked what he thinks would help with his symptoms is requesting treatment for his panic attack as well as a refill of his omeprazole. Denies diarrhea or alcohol ingestion or hematemesis or coffee-ground emesis or melena. REVIEW OF SYSTEMS: Eye: no change in vision ENT: no sore throat Cardiac: no chest pain or syncope Pulmonary: no cough or SOB Abdomen: HPI Musculoskeletal: no back pain Skin: no rash Neuro: no headache Constitutional: no fever : no urinary symptoms A comprehensive 10 point review of systems is otherwise negative aside from elements mentioned in the history of present illness. PAST MEDICAL HISTORY: Includes diabetes, hypertension, depression and anxiety, panic attacks. Hernia repair. Social history: Tobacco smoker General Appearance: Alert and conversant, cooperative. Eyes: No scleral icterus. ENT, Mouth: Normal mucous membranes. No angioedema. Respiratory: Normal respiratory effort, breath sounds equal, lungs are clear to auscultation. No wheezing. Cardiovascular: Regular rate and rhythm. Gastrointestinal: Abdomen is soft and non tender. Negative Awad sign. Neurological: Alert, face symmetric, normal motor and sensory in extremities. Skin: Warm and dry, no rashes. Musculoskeletal: No peripheral edema. Psychiatric: Patient appears quite anxious. Emergency Department course/MDM: I think ketoacidosis is unlikely. He does not appear to have high likelihood for GI bleed or cholecystitis or hepatitis or pancreatitis or other acute medical or surgical emergent condition. More likely reflux and panic attack. GI cocktail, oral Ativan, Zofran ODT. 1110: Feels better, wants discharge which I think is reasonable. Prescription for Zofran and omeprazole at his request. Smoking Status: Current every day smoker Constitutional: Initial Vital Signs Temperature (C) 36.7 C 03/03/18 09:50 Heart Rate 82 03/03/18 09:50 Respiratory Rate 18 03/03/18 09:50 Blood Pressure 163/108 H 03/03/18 09:50 O2 Sat (%) 99 03/03/18 09:50 O2 Delivery Mode Room Air Allergies/Adverse Reactions: No Known Allergies Allergy (Verified 03/03/18 09:49) Home Medications: Medication Instructions Recorded Insulin Pump Cartridge 09/02/17 ADDERALL 15 MG TABLET 03/03/18 Cymbalta 03/03/18 Effexor Xr 03/03/18 Omeprazole 20 mg PO HS #14 tablet. 03/03/18 Ondansetron Odt [Zofran Odt] 4 mg PO Q4PRN #10 tab 03/03/18 Wellbutrin Sr 03/03/18 Medical Decision Making Differential Diagnosis: Differential considered including but not limited to pancreatitis, cholecystitis , GI bleed, hyperventilation, panic attack or anxiety, pulmonary embolism, pneumonia. - Data Points Medications Given: Discontinued Medications Al Hydroxide/Mg Hydroxide (Maalox Susp) 30 ml PO ONCE ONE Stop: 03/03/18 10:09 Last Admin: 03/03/18 10:13 Dose: 30 ml Hyoscyamine Sulfate (Levsin, Hyomax-Sl) 0.25 mg PO ONCE ONE Stop: 03/03/18 10:09 Last Admin: 03/03/18 10:12 Dose: 0.25 mg Lidocaine (Lidocaine 2% Viscous) 15 ml PO ONCE ONE Stop: 03/03/18 10:09 Last Admin: 03/03/18 10:13 Dose: 15 ml Lorazepam (Ativan) 1 mg PO EDNOW ONE Stop: 03/03/18 10:08 Last Admin: 03/03/18 10:12 Dose: 1 mg Ondansetron HCl (Zofran Odt) 4 mg PO EDNOW ONE Stop: 03/03/18 10:08 Last Admin: 03/03/18 10:12 Dose: 4 mg Departure - Departure Disposition: Home, Routine, Self-Care Clinical Impression: Panic attack GERD (gastroesophageal reflux disease) Qualifiers: Esophagitis presence: esophagitis presence not specified Qualified Code(s): K21.9 - Gastro-esophageal reflux disease without esophagitis Condition: Good Instructions: Omeprazole (By mouth), Panic Attack (ED) Referrals: Colette Cohn MD [Primary Care Provider] - As per Instructions Prescriptions: Omeprazole 20 mg PO HS #14 tablet. Ondansetron Odt [Zofran Odt] 4 mg PO Q4PRN #10 tab
[2018-03-03 11:12] VITALS: BP 144/100
== END 2018-03-03 11:12 | disposition home or self-care (01) ==
DX: K21.9 Gastro-esophageal reflux disease without esophagitis (principal); F41.0 Panic disorder [episodic paroxysmal anxiety]; I10 Essential (primary) hypertension; E11.9 Type 2 diabetes mellitus without complications; F17.200 Nicotine dependence, unspecified, uncomplicated; Z79.4 Long term (current) use of insulin

== ENCOUNTER 2018-03-05 06:26 | Emergency (ER) | payer BC ==
[2018-03-05] MEDS ORDERED: LORazepam 1 MG TAB ONE (06:45)
[2018-03-05] MEDS ORDERED: LORazepam 1 MG TAB PO ONE (06:46)
--- NOTE | 2018-03-05 07:21 | EDPHY ---
H & P Time Seen by Provider: 03/05/18 07:19 HPI/ROS: Chief complaint. Dehydrated HPI. Patient 28-year-old male who initially complains of dehydration. However now he tells me he thinks he has is having a panic attack. He was given lorazepam orally prior to my seeing the patient he feels much better. He tells me had vomiting 2 days ago but not since. He has had low energy. No fever. Slight cough. No abdominal pain vomiting or diarrhea in the last 2 days. He has an insulin pump that he says he is using and seems to be working okay. He was seen March 03 for panic attack. ROS Constitutional. Low energy Eyes. no problems with vision ENT. no sore throat, no nasal drainage Cardiovascular. no chest pain Respiratory. no shortness of breath, no cough Abdominal. no abdominal pain, no nausea/vomiting, no diarrhea . no problems urinating MS. no calf pain/swelling, no neck/back pain, no joint pain Skin. no rash Lymph. no swollen glands Neuro. no headache, no dizziness, no difficulty walking or with speech Past Medical/Surgical History: Diabetes with insulin pump, hypertension, depression, anxiety, panic attacks Social History: Single, daily smoker, no alcohol Smoking Status: Heavy smoker Physical Exam: General Appearance: Alert well-developed male mild distress vital signs are stable Eyes: Pupils equal and round no pallor or injection. ENT, Mouth: Mucous membranes are moist. Respiratory: There are no retractions, lungs are clear to auscultation. Cardiovascular: Regular rate and rhythm. Gastrointestinal: Abdomen is soft and nontender, no masses, bowel sounds normal. Neurological: Awake and alert, sensory and motor exams grossly normal. Skin: Warm and dry, no rashes. Musculoskeletal: Neck is supple nontender. Extremities symmetrical, full range of motion. Psychiatric: Patient is oriented X 3, there is no agitation. Constitutional: Initial Vital Signs Temperature (C) 36.3 C 03/05/18 06:28 Heart Rate 98 03/05/18 06:28 Respiratory Rate 18 03/05/18 06:28 Blood Pressure 163/96 H 03/05/18 06:28 O2 Sat (%) 96 03/05/18 06:28 O2 Delivery Mode Room Air Allergies/Adverse Reactions: No Known Allergies Allergy (Verified 03/05/18 06:30) Home Medications: Medication Instructions Recorded Insulin Pump Cartridge 09/02/17 ADDERALL 15 MG TABLET 03/03/18 Cymbalta 03/03/18 Effexor Xr 03/03/18 Omeprazole 20 mg PO HS #14 tablet. 03/03/18 Ondansetron Odt [Zofran Odt] 4 mg PO Q4PRN #10 tab 03/03/18 Wellbutrin Sr 03/03/18 Klonopin 03/05/18 Medical Decision Making Procedures: IV normal saline. Patient had already been given a lorazepam and he is feeling better. ED Course/Re-evaluation: Re-evaluation again at 8:20 a.m.. Patient is stable. He and I discussed laboratory evaluation and elevated blood sugar. I asked him again about insulin pump and he feels that it is working fine. He is up to the bathroom to urinate. Re-evaluation again at 9:00 a.m.. Patient and I discussed laboratory evaluation , treatment plan including criteria for return importance of follow-up and further evaluation. He expresses understanding and agreement Differential Diagnosis: I do not think the patient has DKA. No significant findings for dehydration. His symptoms are improved after taking lorazepam. I think that this is likely anxiety. It is unclear why the patient's blood sugar is elevated at 230 as the pump seems to be working. - Data Points Laboratory Results: Laboratory Results 03/05/18 07:40 03/05/18 07:40 03/05/18 03/05/18 07:40 07:40 WBC 10.63 10^3/uL H 10^3/uL (3.80-9.50) RBC 5.57 10^6/uL 10^6/uL (4.40-6.38) Hgb 16.0 g/dL g/dL (13.7-17.5) Hct 45.9 % % (40.0-51.0) MCV 82.4 fL fL (81.5-99.8) MCH 28.7 pg pg (27.9-34.1) MCHC 34.9 g/dL g/dL (32.4-36.7) RDW 13.4 % % (11.5-15.2) Plt Count 276 10^3/uL 10^3/uL (150-400) MPV 9.9 fL fL (8.7-11.7) Neut % (Auto) 73.1 % % (39.3-74.2) Lymph % (Auto) 16.9 % % (15.0-45.0) [place] % (Auto) 8.4 % % (4.5-13.0) Eos % (Auto) 0.5 % L % (0.6-7.6) Baso % (Auto) 0.5 % % (0.3-1.7) Nucleat RBC Rel Count 0.0 % % (0.0-0.2) Absolute Neuts (auto) 7.78 10^3/uL H 10^3/uL (1.70-6.50) Absolute Lymphs (auto) 1.80 10^3/uL 10^3/uL (1.00-3.00) Absolute Monos (auto) 0.89 10^3/uL H 10^3/uL (0.30-0.80) Absolute Eos (auto) 0.05 10^3/uL 10^3/uL (0.03-0.40) Absolute Basos (auto) 0.05 10^3/uL 10^3/uL (0.02-0.10) Absolute Nucleated RBC 0.00 10^3/uL 10^3/uL (0-0.01) Immature Gran % 0.6 % % (0.0-1.1) Immature Gran # 0.06 10^3/uL 10^3/uL (0.00-0.10) Sodium 137 mEq/L mEq/L (135-145) Potassium 4.2 mEq/L mEq/L (3.3-5.0) Chloride 99 mEq/L mEq/L (97-110) Carbon Dioxide 23 mEq/l mEq/l (22-31) Anion Gap 15 mEq/L mEq/L (8-16) BUN 14 mg/dL mg/dL (7-23) Creatinine 0.7 mg/dL mg/dL (0.7-1.3) Estimated GFR > 60 Glucose 232 mg/dL H mg/dL (70-100) Calcium 9.6 mg/dL mg/dL (8.5-10.4) Medications Given: Discontinued Medications Sodium Chloride (Ns) 1,000 mls @ 0 mls/hr IV EDNOW ONE; Wide Open PRN Reason: Protocol Stop: 03/05/18 07:26 Last Admin: 03/05/18 07:36 Dose: 1,000 mls Lorazepam (Ativan) 1 mg PO EDNOW ONE Stop: 03/05/18 06:47 Last Admin: 03/05/18 06:48 Dose: 1 mg Departure - Departure Disposition: Home, Routine, Self-Care Clinical Impression: Anxiety, Hyperglycemia due to type 1 diabetes mellitus Condition: Good Instructions: Diabetic Hyperglycemia (ED) Additional Instructions: Drink plenty of fluids and stay hydrated. Monitor your blood sugars and make sure your insulin pump is functioning. Return for worsening symptoms including abdominal pain, vomiting, diarrhea. Recheck in 2 days without fail Referrals: NONE *PRIMARY CARE P,. [Primary Care Provider] - As per Instructions Colette Cohn MD [[facility] Primary Care Provider] - 2-3 days, call for appt.
[2018-03-05] MEDS ORDERED: NS 1,000 ML IV ONE (07:25)
[2018-03-05 07:47] LABS: PLATELET COUNT 276 10^3/uL (150-400)
[2018-03-05 10:25] VITALS: BP 156/103
== END 2018-03-05 10:26 | disposition home or self-care (01) ==
DX: F41.9 Anxiety disorder, unspecified (principal); E10.65 Type 1 diabetes mellitus with hyperglycemia; E86.9 Volume depletion, unspecified; I10 Essential (primary) hypertension; F17.200 Nicotine dependence, unspecified, uncomplicated

== ENCOUNTER 2018-08-05 14:18 | Emergency (ER) | payer BC ==
[2018-08-05] MEDS ORDERED: NS 1,000 ML IV ONE ×2 (14:45→15:34)
[2018-08-05] MEDS ORDERED: ONDANSETRON 4 MG/2 ML VIAL IVP ONE (14:45)
[2018-08-05] MEDS ORDERED: LORazepam 2 MG/ML INJ IVP ONE (15:34)
--- NOTE | 2018-08-05 15:34 | EDPHY ---
H & P Stated Complaint: N/V today; BS running high Time Seen by Provider: 08/05/18 15:01 HPI/ROS: CHIEF COMPLAINT: Vomiting HISTORY OF PRESENT ILLNESS: 28-year-old male with IDDM presents with vomiting. Onset of nausea at 0500. Multiple episodes of vomiting and inability tolerate oral fluids. Associated with increased anxiety. Blood sugar 200-220 this morning. Has an insulin pump. No fever, diarrhea or abdominal pain. REVIEW OF SYSTEMS: complete 10 point ROS reviewed and is negative except for the noted elements in the HPI - Personal History Current Tetanus Diphtheria and Acellular Pertussis (TDAP): Yes Tetanus Vaccine Date: 2010 - Medical/Surgical History Hx Asthma: No Hx Chronic Respiratory Disease: No Hx Diabetes: Yes Hx Cardiac Disease: Yes Hx Renal Disease: No Hx Cirrhosis: No Hx Alcoholism: No Hx HIV/AIDS: No Hx Splenectomy or Spleen Trauma: No Other PMH: PMHx: DM I, HTN, HLD, depression, anxiety, panic attacks. PSHx: abcess drained, wisdom tooth extraction, hernia repair - Social History Smoking Status: Current every day smoker Alcohol Use: Sober - Physical Exam Exam: General Appearance: Alert, cooperative, fidgety Eyes: Pupils equal and round, no conjunctival pallor or injection ENT, Mouth: Mucous membranes moist Neck: Normal inspection Respiratory: Lungs are clear to auscultation Cardiovascular: Regular rate and rhythm Gastrointestinal: Abdomen is soft and nontender Neurological: A&O, nonfocal, normal gait Skin: Warm and dry, no rash Extremities: Normal inspection Psychiatric: Anxious Constitutional: Initial Vital Signs Temperature (C) 37 C 08/05/18 14:20 Heart Rate 88 08/05/18 14:20 Respiratory Rate 18 08/05/18 14:20 Blood Pressure 147/78 H 08/05/18 14:20 O2 Sat (%) 97 08/05/18 14:20 O2 Delivery Mode Room Air Allergies/Adverse Reactions: No Known Allergies Allergy (Verified 08/05/18 14:19) Home Medications: Medication Instructions Recorded Insulin Pump Cartridge 09/02/17 ADDERALL 15 MG TABLET 03/03/18 Cymbalta 03/03/18 Wellbutrin Sr 03/03/18 Klonopin 03/05/18 Medical Decision Making ED Course/Re-evaluation: This diabetic patient presents with vomiting. IV normal saline 2 L and Zofran 4 mg IV given. Ativan 0.5 mg IV given for anxiety. Glucose 213, not in DKA. HCO3 18 secondary to dehydration. 4:30 p.m.-feels better, nausea has resolved. Continues to feel slightly anxious , declines further Ativan. Tolerated po fluid trial. Abdomen remained soft and nontender. Discharge instructions given. Differential Diagnosis: Differential diagnosis includes though it is not limited to appendicitis, cholecystitis, diverticulitis, pyelonephritis, bowel perforation, small bowel obstruction. - Data Points Laboratory Results: Laboratory Results 08/05/18 16:14 08/05/18 15:20 08/05/18 08/05/18 08/05/18 16:14 15:20 15:20 WBC REJ REJ RBC TNP TNP Hgb TNP TNP POC Hgb Hct TNP TNP POC Hct MCV TNP TNP MCH TNP TNP MCHC TNP TNP RDW TNP TNP Plt Count TNP TNP MPV TNP TNP Neut % (Auto) TNP TNP Lymph % (Auto) TNP TNP [place] % (Auto) TNP TNP Eos % (Auto) TNP TNP Baso % (Auto) TNP TNP Nucleat RBC Rel Count TNP TNP Absolute Neuts (auto) TNP TNP Absolute Lymphs (auto) TNP TNP Absolute Monos (auto) TNP TNP Absolute Eos (auto) TNP TNP Absolute Basos (auto) TNP TNP Absolute Nucleated RBC TNP TNP Immature Gran % TNP TNP Immature Gran # TNP TNP POC Sodium Sodium 137 mEq/L mEq/L (135-145) POC Potassium Potassium 5.0 mEq/L mEq/L (3.3-5.0) POC Chloride Chloride 106 mEq/L mEq/L (97-110) Carbon Dioxide 18 mEq/l L mEq/l (22-31) Anion Gap 13 mEq/L mEq/L (6-14) POC BUN BUN 15 mg/dL mg/dL (7-23) Creatinine 0.8 mg/dL mg/dL (0.7-1.3) POC Creatinine Estimated GFR > 60 Glucose 213 mg/dL H mg/dL (70-100) POC Glucose Calcium 9.3 mg/dL mg/dL (8.5-10.4) Specimen Hemolysis 174 08/05/18 15:02 WBC RBC Hgb POC Hgb 17.3 gm/dL gm/dL (13.7-17.5) Hct POC Hct 51 % % (40-51) MCV MCH MCHC RDW Plt Count MPV Neut % (Auto) Lymph % (Auto) [place] % (Auto) Eos % (Auto) Baso % (Auto) Nucleat RBC Rel Count Absolute Neuts (auto) Absolute Lymphs (auto) Absolute Monos (auto) Absolute Eos (auto) Absolute Basos (auto) Absolute Nucleated RBC Immature Gran % Immature Gran # POC Sodium 141 mEq/L mEq/L (135-145) Sodium POC Potassium 4.0 mEq/L mEq/L (3.3-5.0) Potassium POC Chloride 104 mEq/L mEq/L (97-110) Chloride Carbon Dioxide Anion Gap POC BUN 15 mg/dL mg/dL (7-23) BUN Creatinine POC Creatinine 0.9 mg/dL mg/dL (0.7-1.3) Estimated GFR Glucose POC Glucose 232 mg/dL H mg/dL (70-100) Calcium Specimen Hemolysis Medications Given: Discontinued Medications Sodium Chloride (Ns) 1,000 mls @ 0 mls/hr IV ONCE ONE PRN Reason: Wide Open Stop: 08/05/18 14:46 Last Admin: 08/05/18 14:48 Dose: 1,000 mls Sodium Chloride (Ns) 1,000 mls @ 0 mls/hr IV ONCE ONE; Wide Open PRN Reason: Protocol Stop: 08/05/18 15:35 Last Admin: 08/05/18 15:43 Dose: 1,000 mls Lorazepam (Ativan Injection) 0.5 mg IVP EDNOW ONE Stop: 08/05/18 15:35 Last Admin: 08/05/18 15:43 Dose: 0.5 mg Ondansetron HCl (Zofran) 4 mg IVP EDNOW ONE Stop: 08/05/18 14:46 Last Admin: 08/05/18 14:48 Dose: 4 mg Point of Care Test Results: Chemistry 08/05/18 15:02 POC Sodium 141 mEq/L mEq/L (135-145) POC Potassium 4.0 mEq/L mEq/L (3.3-5.0) POC Chloride 104 mEq/L mEq/L (97-110) POC BUN 15 mg/dL mg/dL (7-23) POC Creatinine 0.9 mg/dL mg/dL (0.7-1.3) POC Glucose 232 mg/dL H mg/dL (70-100) ISTAT H&H 08/05/18 15:02 POC Hgb 17.3 gm/dL gm/dL (13.7-17.5) POC Hct 51 % % (40-51) Departure - Departure Disposition: Home, Routine, Self-Care Clinical Impression: Vomiting Qualifiers: Vomiting type: unspecified Vomiting Intractability: intractable Nausea presence : with nausea Qualified Code(s): R11.2 - Nausea with vomiting, unspecified Condition: Good Instructions: Acute Nausea and Vomiting (ED) Additional Instructions: 1. Clear liquids for 24 hours. 2. Advance diet as tolerated. I suggest the BRAT diet to start: bananas, rice, applesauce and toast. 3. Return for worsening symptoms, persistent vomiting, abdominal pain, any concerns. Referrals: Colette Cohn MD [Primary Care Provider] - As per Instructions
[2018-08-05 17:06] VITALS: BP 150/69
== END 2018-08-05 17:10 | disposition home or self-care (01) ==
DX: R11.2 Nausea with vomiting, unspecified (principal); E86.0 Dehydration; E10.9 Type 1 diabetes mellitus without complications; F17.200 Nicotine dependence, unspecified, uncomplicated; Z79.4 Long term (current) use of insulin
CPT/HCPCS: 82435-PO; 82565-PO; 82947-PO; 84132-PO; 84295-PO; 84520-PO; 85014-PO; 96374; J2060; J2405

== ENCOUNTER 2018-08-07 07:43 | Emergency (ER) | payer BC ==
[2018-08-07] MEDS ORDERED: ONDANSETRON 4 MG/2 ML VIAL IVP ONE (08:20)
[2018-08-07] MEDS ORDERED: NS 1,000 ML IV ONE (08:20)
[2018-08-07 08:27] LABS: PLATELET COUNT 282 10^3/uL (150-400)
[2018-08-07] MEDS ORDERED: HALOPERIDOL LACT 5 MG/ML INJ IVP ONE (08:27)
--- NOTE | 2018-08-07 08:30 | EDPHY ---
H & P Stated Complaint: N/V since last night Time Seen by Provider: 08/07/18 08:20 HPI/ROS: CHIEF COMPLAINT: Vomiting HISTORY OF PRESENT ILLNESS: 28-year-old male with diabetes presents with vomiting. Onset of vomiting this morning, unable the tolerate oral fluids since then. Associated with generalized abdominal pain. The pain is moderate and cramping. Seen by me in this emergency department 2 days ago for vomiting, relieved with Zofran and Ativan IV. No recurrent vomiting until this morning. No fever or diarrhea. History of multiple prior similar episodes, previously diagnosed with peptic ulcer disease. 9 episodes of vomiting in the past 12 months. He is a daily marijuana user. REVIEW OF SYSTEMS: complete 10 point ROS reviewed and is negative except for the noted elements in the HPI Source: Patient, Family - Personal History Tetanus Vaccine Date: 2010 - Medical/Surgical History Hx Asthma: No Hx Chronic Respiratory Disease: No Hx Diabetes: Yes Hx Cardiac Disease: Yes Hx Renal Disease: No Hx Cirrhosis: No Hx Alcoholism: No Hx HIV/AIDS: No Hx Splenectomy or Spleen Trauma: No Other PMH: PMHx: DM I, HTN, HLD, depression, anxiety, panic attacks. PSHx: abcess drained, wisdom tooth extraction, hernia repair - Social History Smoking Status: Current every day smoker Alcohol Use: Sober Drug Use: Marijuana - Physical Exam Exam: General Appearance: Alert, pleasant, diaphoretic, writhing Eyes: Pupils equal and round, no conjunctival pallor or injection ENT, Mouth: Mucous membranes moist Neck: Normal inspection Respiratory: Lungs are clear to auscultation Cardiovascular: Regular rate and rhythm Gastrointestinal: Abdomen is soft, diffuse tenderness Neurological: A&O, nonfocal exam Skin: Warm and dry Extremities: Nontender, no pedal edema Psychiatric: Mood and affect normal Constitutional: Initial Vital Signs Temperature (C) 37.0 C 08/07/18 07:46 Heart Rate 80 08/07/18 07:46 Respiratory Rate 26 H 08/07/18 07:46 Blood Pressure 137/103 H 08/07/18 07:46 O2 Sat (%) 100 08/07/18 07:46 O2 Delivery Mode Room Air Allergies/Adverse Reactions: No Known Allergies Allergy (Verified 08/05/18 14:19) Home Medications: Medication Instructions Recorded Insulin Pump Cartridge 09/02/17 ADDERALL 15 MG TABLET 03/03/18 Cymbalta 05/13/18 Wellbutrin Sr 03/03/18 Klonopin 03/05/18 Ondansetron Odt [Zofran Odt 4 mg 4 mg PO Q4 PRN #6 tab 08/07/18 (*)] Promethazine HCl [Phenergan Rectal] 25 mg ID Q6 PRN #10 suppr 08/07/18 Medical Decision Making ED Course/Re-evaluation: This patient presents with recurrent nausea and vomiting, most consistent with cyclic vomiting syndrome. IV normal saline 1 L, Zofran 4 mg IV and Haldol 2.5 mg IV given. Blood glucose 182 and venous blood gas c/w hyperventilation and no acidosis. 10:00 a.m.-feels much better, no nausea or abdominal pain. Abdomen is soft and nontender. Ready for discharge home. Will follow up with his psychiatrist and with GI. Warning signs discussed. Differential Diagnosis: Differential diagnosis includes though it is not limited to appendicitis, cholecystitis, diverticulitis, pyelonephritis, bowel perforation, small bowel obstruction. - Data Points Laboratory Results: Laboratory Results 08/07/18 08:00 08/07/18 08:00 08/07/18 08/07/18 08/07/18 08:40 08:00 08:00 WBC 10.54 10^3/uL H 10^3/uL (3.80-9.50) RBC 5.70 10^6/uL 10^6/uL (4.40-6.38) Hgb 16.5 g/dL g/dL (13.7-17.5) Hct 46.7 % % (40.0-51.0) MCV 81.9 fL fL (81.5-99.8) MCH 28.9 pg pg (27.9-34.1) MCHC 35.3 g/dL g/dL (32.4-36.7) RDW 12.8 % % (11.5-15.2) Plt Count 282 10^3/uL 10^3/uL (150-400) MPV 11.1 fL fL (8.7-11.7) Neut % (Auto) 80.5 % H % (39.3-74.2) Lymph % (Auto) 11.8 % L % (15.0-45.0) [place] % (Auto) 6.2 % % (4.5-13.0) Eos % (Auto) 0.8 % % (0.6-7.6) Baso % (Auto) 0.4 % % (0.3-1.7) Nucleat RBC Rel Count 0.0 % % (0.0-0.2) Absolute Neuts (auto) 8.50 10^3/uL H 10^3/uL (1.70-6.50) Absolute Lymphs (auto) 1.24 10^3/uL 10^3/uL (1.00-3.00) Absolute Monos (auto) 0.65 10^3/uL 10^3/uL (0.30-0.80) Absolute Eos (auto) 0.08 10^3/uL 10^3/uL (0.03-0.40) Absolute Basos (auto) 0.04 10^3/uL 10^3/uL (0.02-0.10) Absolute Nucleated RBC 0.00 10^3/uL 10^3/uL (0-0.01) Immature Gran % 0.3 % % (0.0-1.1) Immature Gran # 0.03 10^3/uL 10^3/uL (0.00-0.10) Puncture Site VENOUS Patient Temperature 37.0 DEGREES DEGREES VBG pH 7.47 H (7.31-7.42) VBG HCO3 19 mEQ/L L mEQ/L (22-26) VBG Total CO2 19 mEq/L L mEq/L (21-27) VBG O2 Saturation 79 % H % (65-75) VBG Base Excess -3.1 mEq/L L mEq/L (-2.5-2.5) Mixed VBG pCO2 26 mmHg L mmHg (40-44) Mixed VBG pO2 44 mmHG H mmHG (35-40) Sodium 140 mEq/L mEq/L (135-145) Potassium 4.0 mEq/L mEq/L (3.3-5.0) Chloride 103 mEq/L mEq/L (97-110) Carbon Dioxide 18 mEq/l L mEq/l (22-31) Anion Gap 19 mEq/L H mEq/L (6-14) BUN 11 mg/dL mg/dL (7-23) Creatinine 1.0 mg/dL mg/dL (0.7-1.3) Estimated GFR > 60 Glucose 182 mg/dL H mg/dL (70-100) Calcium 10.4 mg/dL mg/dL (8.5-10.4) Total Bilirubin 1.1 mg/dL mg/dL (0.1-1.4) Conjugated Bilirubin 0.3 mg/dL mg/dL (0.0-0.5) Unconjugated Bilirubin 0.8 mg/dL mg/dL (0.0-1.1) AST 38 IU/L IU/L (17-59) ALT 44 IU/L IU/L (21-72) Alkaline Phosphatase 99 IU/L IU/L (38-126) Total Protein 8.1 g/dL g/dL (6.3-8.2) Albumin 5.1 g/dL H g/dL (3.5-5.0) Lipase 38 IU/L IU/L (23-300) Medications Given: Discontinued Medications Haloperidol Lactate (Haldol Injection) 2.5 mg IVP EDNOW ONE Stop: 08/07/18 08:28 Last Admin: 08/07/18 08:32 Dose: 2.5 mg Sodium Chloride (Ns) 1,000 mls @ 0 mls/hr IV EDNOW ONE; Wide Open PRN Reason: Protocol Stop: 08/07/18 08:21 Last Admin: 08/07/18 08:33 Dose: 1,000 mls Ondansetron HCl (Zofran) 4 mg IVP EDNOW ONE Stop: 08/07/18 08:21 Last Admin: 08/07/18 08:32 Dose: 4 mg Departure - Departure Disposition: Home, Routine, Self-Care Clinical Impression: Cyclic vomiting syndrome Qualifiers: Vomiting Intractability: intractable Nausea presence: with nausea Qualified Code(s): G43.A1 - Cyclical vomiting, intractable Condition: Good Instructions: Cyclic Vomiting Syndrome (ED) Additional Instructions: 1. Clear liquids for 24 hours. 2. Advance diet as tolerated. I suggest the BRAT diet to start: bananas, rice, applesauce and toast. 3. Return for worsening symptoms, persistent vomiting, abdominal pain, any concerns. Referrals: Colette Cohn MD [Primary Care Provider] - As per Instructions Andres Killian MD, FACG [Medical Doctor] - As per Instructions (Call to make an appointment.) Prescriptions: Ondansetron Odt [Zofran Odt 4 mg (*)] 4 mg PO Q4 PRN #6 tab PRN Reason: Nausea Promethazine HCl [Phenergan Rectal] 25 mg ID Q6 PRN #10 suppr PRN Reason: vomiting
[2018-08-07 09:31] VITALS: BP 116/53
== END 2018-08-07 10:14 | disposition home or self-care (01) ==
DX: G43.A1 Cyclical vomiting, in migraine, intractable (principal); E11.9 Type 2 diabetes mellitus without complications; I10 Essential (primary) hypertension; F17.200 Nicotine dependence, unspecified, uncomplicated; Z79.4 Long term (current) use of insulin
CPT/HCPCS: 96374; J1630; J2405